=== PATIENT | male | born 1960 | race Caucasian/White ===

== ENCOUNTER 2024-10-18 07:10 | Day surgery (SDC) | payer OTHER, BC ==
[2024-10-12 08:47] LABS: Absolute Basophils 0.1 K/uL (0-0.5); Absolute Eosinophils 0.2 K/uL (0-0.5); Absolute Lymphocytes (CBC) 0.9 K/uL (0.7-4.9); Absolute Monocytes 0.6 K/uL (0.1-1.3); Absolute Neutrophil 5.7 K/uL (1.8-8.0); Eosinophils % 2.6 % (0-4.4); Hematocrit 35.5 % (39.6-49.0); Hemoglobin 11.3 g/dL (13.6-17.9); Lymphocytes % 12.4 % (15.3-44.8); MCH 30.2 pg (27.0-35.0); MCHC 31.9 g/dL (32.0-36.0); MCV 94.5 fL (80-100); Monocytes % 7.7 % (3.3-12.3); Neutrophils % 76.3 % (41.7-73.7); Platelets 227 thou/uL (152-406); RBC Red Blood Cell Count 3.76 M/uL (4.33-5.43); Red Cell Distribution Width 16.2 % (12.1-15.2)
[2024-10-12 08:56] LABS: PT Prothrombin Time 10.9 SECONDS (9.4-12.5); PTT, Activated Partial Thromb 32.1 SECONDS (24.3-36.9); Protime INR 0.97
--- NOTE | 2024-10-12 08:58 | RAD REPORT ---
EXAMINATION: TWO VIEW CHEST XR CLINICAL INDICATION: PRE OP TECHNIQUE: 2 views of the chest was performed. COMPARISON: 02/20/2017 FINDINGS: The lungs are well inflated and clear. The heart is normal in size. No displaced fractures evident. IMPRESSION: No acute or significant abnormalities.
[2024-10-12 09:05] LABS: Anion Gap 10.1 mEq/L (5.0-15.0); Potassium 4.1 mEq/L (3.5-5.1)
--- NOTE | 2024-10-13 11:48 | EKG ---
Test Date: 2024-10-12 Test Time: 09:18:50 Board Saw Runner: PREO MEASUREMENT RESULTS: Intervals: Rate: 60 SC: 154 QRSD: 94 QT: 420 QTc: 420 Closplint: P: 8 SC: 154 QRS: 3 T: 41 INTERPRETIVE STATEMENTS: Normal sinus rhythm Normal ECG No previous ECG available for comparison Electronically Signed On 10-13-24 11:47:10 RUST PROOFER by Landon Perez
[2024-10-18] MEDS ORDERED: NA CHLORIDE 0.9% 500 ML ONE (07:12)
[2024-10-18] MEDS ORDERED: HEPA 1000U/500MLS 2,000 UNIT/1,000 ML BAG IV ONE (07:16)
[2024-10-18] MEDS ORDERED: ASPIRIN 325 MG TAB ONE (07:17)
[2024-10-18] MEDS ORDERED: TICAGRELOR 90 MG TABLET PO ONE (07:17)
[2024-10-18] MEDS ORDERED: HEPARIN 10,000 UNIT/10 ML VIAL IV ONE (07:17)
[2024-10-18] MEDS ORDERED: LIDOCAINE 1% 20 ML MDV ONE (07:17)
[2024-10-18] MEDS ORDERED: ATROPINE SULF 1 MG/10 ML SYR IV ONE (07:17)
[2024-10-18] MEDS ORDERED: MIDAZOLAM HCL 2 MG/2 ML INJ ONE (07:17)
[2024-10-18] MEDS ORDERED: CLOPIDOGREL 75 MG TABLET ONE (07:17)
[2024-10-18] MEDS ORDERED: HEPARIN 5000 UNIT/ML 1 ML VIAL ONE (07:17)
[2024-10-18] MEDS ORDERED: FENTANYL CITR 100 MCG/2 ML ONE (07:18)
[2024-10-18] MEDS ORDERED: NITROGLYCERIN/D5W 50 MG/250 ML BTL IV ONE (07:18)
[2024-10-18 08:39] VITALS: TEMP 97
--- NOTE | 2024-10-18 08:39 | OP ---
Date of Procedure: 10/18/2024 Surgeon: Landon Perez Procedures Performed: 1.Selective coronary angiogram. 2.Left heart catheterization. Indication For Procedure: Shortness of breath, abnormal stress test. Complications: None. Estimated Blood Loss: Less than 50 cc. Access: Right radial, closed by TR band. Sedation Time: 20 minutes with 2 of Versed and 50 of fentanyl. Description Of Procedure: After risks, benefits, and alternatives were explained to the patient, the patient agreed to proceed with procedure and signed informed consent. The patient was brought back to the packing house laborer, prepped and draped in sterile fashion. Time-out was performed. Sedation was admini stered. Next, right radial access was obtained. [place] 4 catheter was advanced over a J-wire to the LV cavity. LVEDP was obtained. Pullback did not show any gradient. Same catheter was used for yuli ctive angiogram of the left and right coronary systems. At the end of procedure, catheter was remove d over a J-wire. Sheath was removed. TR band was applied. Hemostasis achieved. The patient was mo stephanie back to recovery in stable condition. Findings: 1.Left main, absent, separate ostia. 2.LAD, diffuse mild luminal irregularities. 3.Left circ, mild luminal irregularities. 4.RCA, mild luminal irregularities. 5.LVEDP 18 mmHg. Assessment And Plan: 1.Normal coronaries. 2.Mild elevated filling pressure. The plan will be to continue medical management for hypertension. PIETER/YOSEF Voice ID: [id number] Report ID: [id number]
[2024-10-18 09:21] VITALS: O2SAT 98
[2024-10-18 09:56] VITALS: BP 115/52
== END 2024-10-18 10:00 | disposition home or self-care (01) ==
LOC: CCL 07:10
PROVIDERS: ADMIT Internal Medicine; ATTEND Internal Medicine Interventional Cardiology
DX: R94.39 Abnormal result of other cardiovascular function study (principal); R06.02 Shortness of breath; I10 Essential (primary) hypertension; E78.2 Mixed hyperlipidemia; C61 Malignant neoplasm of prostate; Z79.899 Other long term (current) drug therapy; Z98.84 Bariatric surgery status
CPT/HCPCS: 93005; 85025; 80048; 36415; 85610; 85730; 71046; 93458; 76937; C1893; Q9966; J1644; J2003; J2250; J3010; J7040; 99152; 99153; J0461